=== PATIENT | male | born 2000 | race African-American/Black ===

== ENCOUNTER 2021-01-08 07:37 | Emergency (ER) | payer OTHER ==
[~2021-01-08] VITALS: Ht 180.3 cm; Wt 96.0 kg
[2021-01-08 08:18] VITALS: BP 130/78
== END 2021-01-08 08:18 | disposition home or self-care (01) ==
LOC: ER 07:45
DX: D17.21 Benign lipomatous neoplasm of skin and subcutaneous tissue of right arm (principal); J45.909 Unspecified asthma, uncomplicated
CPT/HCPCS: 99281

== ENCOUNTER 2021-06-23 10:57 | Emergency (ER) | payer OTHER ==
[~2021-06-23] VITALS: Ht 180.3 cm; Wt 100.0 kg
[2021-06-23 11:06] VITALS: BP 113/90
== END 2021-06-23 14:21 | disposition home or self-care (01) ==
LOC: ER 10:57
DX: R22.32 Localized swelling, mass and lump, left upper limb (principal); J45.909 Unspecified asthma, uncomplicated
CPT/HCPCS: 76881; 99284

== ENCOUNTER 2022-01-15 08:58 | Emergency (ER) | payer OTHER ==
[~2022-01-15] VITALS: Ht 180.3 cm; Wt 100.0 kg
[2022-01-15 10:16] VITALS: BP 141/95
== END 2022-01-15 10:16 | disposition home or self-care (01) ==
LOC: ER 10:06
DX: J06.9 Acute upper respiratory infection, unspecified (principal); B34.9 Viral infection, unspecified; J45.909 Unspecified asthma, uncomplicated; Z20.822 Contact with and (suspected) exposure to COVID-19
CPT/HCPCS: 87426; 99283; C9803